=== PATIENT | male | born 1995 | race Two or more races ===

== ENCOUNTER 2018-07-23 01:14 | Emergency (ER) | payer SELFPAY ==
[~2018-07-23] VITALS: Ht 177.8 cm; Wt 72.6 kg
[2018-07-23 01:15] VITALS: BP 149/79
== END 2018-07-23 01:56 | disposition home or self-care (01) ==
LOC: ER 01:16
DX: Z13.89 Encounter for screening for other disorder (principal)
CPT/HCPCS: 99283; A4606; Z7610